=== PATIENT | female | born 1990 | race Caucasian/White ===

== ENCOUNTER 2016-04-14 18:43 | Emergency (ER) | payer OTHER ==
[2016-04-14 18:51] VITALS: RESP 16; TEMP 97.9
[2016-04-14] MEDS ORDERED: IBUPROFEN 200 MG TAB PO ONE (19:21)
--- NOTE | 2016-04-14 20:37 | DX ---
Right Foot, Three Views Clinical Indications: Trauma. Findings: No fracture or dislocation. No periosteal reaction or erosion. No radiopaque foreign bod y. Joint spaces have normal thickness. Impression: Normal.
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
[2016-04-14 21:13] VITALS: BP 115/85; PULSE 72; O2SAT 98
== END 2016-04-14 21:12 | disposition home or self-care (01) ==
DX: S16.1XXA Strain of muscle, fascia and tendon at neck level, initial encounter (principal); S90.31XA Contusion of right foot, initial encounter; V09.20XA Pedestrian injured in traffic accident involving unspecified motor vehicles, initial encounter; Y92.410 Unspecified street and highway as the place of occurrence of the external cause; Y93.89 Activity, other specified
CPT/HCPCS: L3260